=== PATIENT | male | born 1980 | race Caucasian/White ===

== ENCOUNTER → 2017-04-11 | Outpatient (CLI) | payer BC ==
[2016-02-17 10:47] VITALS: BP 129/76
--- NOTE | 2017-04-11 12:19 | RAD ---
HISTORY: Back pain and radiculopathy, no injury Study: Five views lumbar spine Comparison: None Findings: There is mild levoscoliosis which could be positional or degenerative. There is mild to moderate mu ltilevel discogenic degenerative disease and facet arthropathy most severe at L5-S1 where there is l oss of intervertebral disc space height, vacuum disc phenomenon, endplate sclerosis, and marginal os teophyte formation. No evidence for acute fracture can be identified. There are no destructive oss eous lesions. The surrounding soft tissues are unremarkable. IMPRESSION: Mild to moderate lumbar spondylosis as detailed above. Reported By:
== END ==
LOC: RAD 10:33
PROVIDERS: ATTEND Nurse Practitioner Family
DX: M54.17 Radiculopathy, lumbosacral region (principal)
CPT/HCPCS: 72110

== ENCOUNTER → 2017-04-21 | Outpatient (CLI) | payer BC ==
[2016-02-17 10:47] VITALS: BP 129/76
--- NOTE | 2017-04-21 11:19 | MRI ---
STUDY: MRI OF THE LUMBAR SPINE WITHOUT AND WITH GADOLINIUM HISTORY: Low back pain with radiculopathy affecting left lower extremity. Comparison: April 11, 2017. Technique: Multiplanar multi-sequence MRI of the lumbar spine was obtained. Sagittal T1, sagittal T 2, and STIR images, axial T1, and axial T2 images were obtained. Findings: Vertebral body heights are within normal limits. There is grade 1 retrolisthesis of L5 on S1. There is degenerative endplate change, most notable at L5/S1. There is degenerative disk disease, with dis c bulges at L4/5 and L5/S1. The conus medullaris is normal appearance terminating at the level of L2 . Axial images: T11 -- T12: Normal. T12 -- L1: Normal. L1 -- L2: Normal. L2 -- L3: There is no significant disc bulge. There is bilateral facet arthropathy and ligamentum fl avum infolding. The central canal and neural foramina are adequate at this level. L3 -- L4: There is no significant disc bulge. There is bilateral facet arthropathy and ligamentum fl avum infolding. The central canal and neural foramina are adequate. L4 -- L5: There is a broad-based disc bulge with central disc herniation. This effaces and contours the ventral aspect of the thecal sac. The central canal remains adequate. No nerve root compression is identified. There is no significant neural foraminal stenosis. L5 -- S1: There is a broad-based disc bulge with left paracentral, left lateral recess and left fora stanley disc herniation. This results in compression of the traversing S1 nerve root in the left later al recess and mild to moderate narrowing of the left neural foramen. Post gadolinium a lumbar spine: Following administration of intravenous gadolinium, there is no evid ence of abnormal osseous, neural, or leptomeningeal enhancement. IMPRESSION: 1. Left paracentral disc herniation resulting in left lateral recess stenosis at L5/S1 and effacemen t of the traversing left S1 nerve root. 2. Mild to moderate left neural foraminal stenosis at L5/S1. 3. Degenerative disk disease with central disc herniation at L4/5. Reported By:
== END ==
LOC: RAD 07:48
PROVIDERS: ATTEND Nurse Practitioner Family
DX: M54.17 Radiculopathy, lumbosacral region (principal)
CPT/HCPCS: 72158

== ENCOUNTER → 2017-07-06 | Outpatient (CLI) | payer OTHER, BC ==
[2016-02-17 10:47] VITALS: BP 129/76
--- NOTE | 2017-07-07 08:29 | RAD ---
HISTORY: Knee Pain. Study: Complete three view series of the left knee joint. Comparison: 2016. Findings: No acute fracture, subluxation, or dislocation is identified. The medial and lateral tibiofemoral co mpartments appear unremarkable without loss of significant joint space. The lateral radiograph shows trace left knee joint fluid. Patellofemoral compartment is unremarkable in appearance. No lytic or bone forming lesions are seen. No high-grade osteochondral defects are observed. No unexpected radiop aque foreign bodies are seen. There is no evidence for significant degenerative arthrosis. No focal j oint erosions are seen, either. IMPRESSION: Trace left knee joint fluid without acute fracture/bony injury seen. Reported By:
== END ==
LOC: RAD 16:06
PROVIDERS: ATTEND Specialist
DX: S83.512A Sprain of anterior cruciate ligament of left knee, initial encounter (principal); X58.XXXA Exposure to other specified factors, initial encounter
CPT/HCPCS: 73564

== ENCOUNTER 2017-07-31 15:55 | Emergency (ER) | payer BC, OTHER ==
[2017-07-31 16:00] VITALS: BP 142/91; BMI 38.5
[2017-07-31] MEDS ORDERED: FUL-GLO STRIP ONE (17:23)
[2017-07-31] MEDS ORDERED: TETRACAINE HCL ONE (17:47)
[2017-07-31] MEDS ORDERED: TETRACAINE HCL AFFEYE ONE ×2 (17:51→18:00)
--- NOTE | 2017-07-31 18:01 | DR.GENAD ---
HPI - PCP Primary Care Physician: ABRAHAM - Complaint/Symptoms Chief Complaint:: "I THINK I GOT SAW DUST IN MY LEFT EYE AND IT'S SWELLING." Self Treatment fo Chief Complaint: WASH OUT - Source History Provided: Patient - Mode of Arrival Mode of Arrival: Ambulatory - Timing Onset of Chief Complaint: 07/31/17 PMH - PMH Past Medical History: Yes Past Medical History: Hypertension Past Surgical History: Yes Surgical History: Other Past Surgical History Comment: HERNIA, RIGHT EYE SURGERY - Family History History of Family Medical Conditions: Yes Family Medical History: Diabetes Mellitus, Hypertension - Social History Does patient currently use any type of tobacco product: No Have you used tobacco products in the last 12 months: No Type of Tobacco Use: None Does any household member use tobacco: No Alcohol Use: None Do you use any recreational Drugs:: No Lives With: Family Lives Where: Home - infectious screening In the last 2 months have you had wt loss of >10#?: NO Have you had fever, night sweats or hemotysis?: No Have you traveled outside the country in the last 6 months?: No Isolation: Standard ROS - Review of Systems Eyes: See HPI, Blurred Vision, Other (sclera abrasion) ENTM: No Symptoms Reported Respiratoy: No Symptoms Reported Cardiovascular: No Symptoms Reported Gastrointestinal/Abdominal: No Symptoms Reported Genitourinary: No Symptoms Reported Neurological: No Symptoms Reported Musculoskeletal: No Symptoms Reported Integumentary: No Symptoms Reported Hematologic/Lymphatic: No Symptoms Reported Endocrine: No Symptoms Reported, Increased Hunger All Other Systems: Reviewed and Negative PE - Vital Signs Vitals: Temperature 98.1 F Pulse Rate 88 Respiratory Rate 20 Blood Pressure [Right Arm] 106/60 Blood Pressure [Left Arm] 121/64 Blood Pressure 142/91 O2 Sat by Pulse Oximetry 97 - General Limitations: No Limitations General Appearance: Alert - Head Head Exam: Normal Inspection, Atraumatic - Eyes Eye exam: Normal Appearance, PERRL, EOMI, Conjunctival Injection, Other ( scleral abrasion) - ENT ENT Exam: Normal Exam External Ear Exam: Normal External Inspection TM/Canal Exam: Bilateral Normal Nose Exam: Normal Nose Exam Mouth Exam: Normal Inspection Throat Exam: Normal Inspection - Neck Neck Exam: Normal Inspection - Chest Chest Inspection: Normal Inspection - Respiratory Respiratory Exam: Normal Lung Sounds Bilat Respiratory Exam: Bilateral Clear to Auscultation - Cardiovascular Cardiovascular Exam: Regular Rate, Normal Rhythm - Abdominal Exam Abdominal Exam: Normal Inspection Abdominal Tenderness: negative: RUQ, RLQ, LUQ, LLQ, Epigastrium, Suprapubic, Diffuse, Mild, Moderate, Severe, Other - Extremities Extremities Exam: Normal Inspection, Full ROM - Back Back Exam: Normal Inspection - Neurologic Neurological Exam: Alert, Oriented X3, CN II-XII Intact - Psychiatric Psychiatric Exam: Normal Affect, Normal Mood - Skin Skin Exam: Warm, Dry - Diagnosis Discharge Problem: Abrasion of sclera of left eye Qualifiers: Encounter type: initial encounter Qualified Code(s): S05.8X2A - Other injuries of left eye and orbit, initial encounter - Discharge Plan Condition: Stable - Follow ups/Referrals Follow ups/Referrals: [facility],None [Primary Care Provider] - 3 days - Instructions
== END 2017-07-31 18:11 | disposition home or self-care (01) ==
LOC: ER 16:06
DX: S05.8X2A Other injuries of left eye and orbit, initial encounter (principal); Y33.XXXA Other specified events, undetermined intent, initial encounter
CPT/HCPCS: 80305; 99281; 99282

== ENCOUNTER → 2017-12-14 | Outpatient (CLI) | payer OTHER, BC ==
--- NOTE | 2017-12-14 19:33 | RAD ---
Examination: Left knee, three views History: Knee pain Findings: There is no evidence for fracture, Dislocation or synovial effusion. Impression: No acute or significant left knee findings. [facility] Reported By:
== END ==
LOC: RAD 16:47
PROVIDERS: ATTEND Specialist
DX: M54.17 Radiculopathy, lumbosacral region (principal)
CPT/HCPCS: 73560